=== PATIENT | female | born 1960 | race Caucasian/White ===

== ENCOUNTER 2018-06-12 07:33 | Inpatient (IN) | payer OTHER ==
[2018-06-12 07:42] VITALS: BMI 30.9
--- NOTE | 2018-06-12 07:49 | PDOC ---
History of Present Illness - General Stated Complaint: CVA/TIA Time Seen by Provider: 06/12/18 07:37 History Source: Patient, EMS, Family - History of Present Illness Timing/Duration: reports: other (~11 hrs ago) Associated Symptoms: reports: confusion Past History - Past Medical History Allergies/Adverse Reactions: Allergies Allergy/AdvReac Type Severity Reaction Status Date / Time piperacillin AdvReac Mild Rash Verified 04/01/12 18:35 Home Medications: Ambulatory Orders Aspirin [ASA] 81 mg PO DAILY 60 Days tab 04/05/12 Cholecalciferol (Vitamin D3) [Vitamin D3] 4,000 unit PO DAILY capsule 02/09/15 CVA: Yes Hypercholesterolemia: Yes - Surgical History Appendectomy: Yes - Suicide/Smoking/Psychosocial Hx Smoking Status: No Smoking History: Current some day smoker Years of Tobacco Use: 20 Have you smoked in the past 12 months: Yes Number of Cigarettes Smoked Daily: 10 'Breaking Loose' booklet given: 04/02/12 Hx Alcohol Use: No Drug/Substance Use Hx: No Substance Use Type: None Hx Substance Use Treatment: No Review of Systems - Review of Systems Constitutional: No: Chills, Fever HEENTM: No: Blurred Vision Respiratory: No: Cough, Shortness of Breath Cardiac (ROS): No: Chest Pain, Lightheadedness, Palpitations, Syncope ABD/GI: No: Nausea, Vomiting, Abdominal cramping : No: Dysuria Neurological: No: Headache, Numbness, Weakness, Dizziness *Physical Exam - Physical Exam General Appearance: Yes: Appropriately Dressed. No: Apparent Distress HEENT: positive: Normal Voice Neck: positive: Supple Respiratory/Chest: positive: Lungs Clear, Normal Breath Sounds. negative: Respiratory Distress Cardiovascular: positive: Regular Rate, S1, S2 Gastrointestinal/Abdominal: positive: Soft. negative: Tender Musculoskeletal: negative: CVA Tenderness Extremity: positive: Normal Inspection Integumentary: positive: Dry, Warm Neurologic: positive: Alert, Normal Mood/Affect, Motor Strength 5/5. negative: Facial Droop (alert, oriented x 0 (does not give answers, appears to have difficulty finding words), unable to perform [place] to LUE only, no drift, no ataxia) NIH Stroke Scale - Last Known Well Date/Time & Onset Date Last Known Well: 06/11/18 (@9pm) - Initial Evaluation Level of consciousness: Alert Ask patient the month and their age: Both incorrect (unable to answer) Ask patient to open & close eyes; make fist and let go: Obeys both correctly Best gaze (horizontal eye movement): Normal Visual field testing: No visual field loss Facial paresis (Show teeth/raise eyebrows/close eyes tight): Normal symmetrical movement Motor Function: Left Arm: Normal Motor Function: Right Arm: Normal (extends arm 90 (or 45) degrees for 10 seconds without drift Motor Function: Left Leg: Normal (extends leg 30 degrees for 5 seconds without drift) Motor Function: Right Leg: Normal (extends leg 30 degrees for 5 seconds without drift) Limb Ataxia: Present in one limb Sensory(Use pinprick test arms,legs,trunk,face/side to side): Normal Best language (Describe picture, name items, read sentences): Mild to moderate aphasia Dysarthria (read several words): Normal articulation Extinction and Inattention: No abnormality - Total Score NIH Stroke Scale Score: 4 Critical Care Time/MDM Note - Medical Decision Making Note: 06/12/18 07:41 58-year-old F, smoker, TIA 3 years ago, s/p carotid dopplers 04/2017, showing no significant "hemodynamic stenosis", BIB EMS for AMS. Family reports that at about 9pm last night, they noticed that patient appeared confused and with difficulty producing speech. Family describes an event this am where patient stood in the doorway just staring "into space", at which time they called EMS. Patient alert in ED and able to give some history, states she feels well with no headache, dizziness, focal weakness, nausea, vomiting, chest pain or shortness of breath See exam CVA NIHSS score of 4 -labs -CTH -admit 06/12/18 08:06 06/12/18 08:55 CT head read as negative. Labs and EKG unremarkable. Neuro exam unchanged. Case discussed with Dr. Valenzuela who will see patient in-house. Will discuss case with hospitalist and admit at this time 06/12/18 08:58 *DC/Admit/Observation/Transfer Diagnosis at time of Disposition: Aphasia Altered mental status Qualifiers: Altered mental status type: unspecified Qualified Code(s): R41.82 - Altered mental status, unspecified - Discharge Dispostion Condition at time of disposition: Fair Decision to Admit order: Yes - Referrals - Patient Instructions - Post Discharge Activity
[2018-06-12 08:18] LABS: EOS % 4.6 % (0-4.5); HEMATOCRIT 46.5 % (32.4-45.2); HEMOGLOBIN 15.2 GM/dL (10.7-15.3); LYMPH % 23.4 % (8-40); MCH 28.3 pg (25.7-33.7); MCHC 32.8 g/dl (32.0-36.0); MEAN CELL VOLUME 86.3 fl (80-96); MEAN PLT VOLUME 9.2 fl (7.5-11.1); MONO % 6.1 % (3.8-10.2); NEUT % 64.9 % (42.8-82.8); PLATELET COUNT 270 K/MM3 (134-434); RBC 5.39 M/mm3 (3.60-5.2); RDW 14.2 % (11.6-15.6); WHITE BLOOD COUNT 11.6 K/mm3 (4.0-10.0)
--- NOTE | 2018-06-12 08:28 | PDOC ---
*Physical Exam - Vital Signs Last Vital Signs Temp Pulse Resp BP Pulse Ox 97.8 F 65 18 141/60 92 L 06/12/18 07:34 06/12/18 07:34 06/12/18 07:34 06/12/18 07:34 06/12/18 07:34 - Physical Exam Comments: 06/12/18 08:24 Vital signs within normal limits Heart is regular with one out of 6 systolic ejection murmur NEURO: Mental status: The patient is alert and oriented x2 - difficulty specifying location. Cranial nerves: Cranial nerves II through XII are intact Motor: The upper extremities are 5 over 5 in all muscle groups. The lower extremities are 5 over 5 in all muscle groups. No pronator drift. Sensation: Sensation is intact to light touch throughout. Cerebellar: [id number] is normal in both upper extremities. Reflexes: 2+ and symmetric in the upper and lower extremities. Gait: Normal. Heel and toe walking are normal. Heart Score/ECG Review #1 ECG reviewed & interpreted by me at: 08:27 General ECG Interpretation: Sinus Rhythm, Normal Rate (61), Normal Intervals ( qtc 434), No acute ischemic changes ED Treatment Course - LABORATORY CBC & Chemistry Diagram: 06/12/18 07:50 06/12/18 07:50 - ADDITIONAL ORDERS Additional order review: 06/12/18 07:50 RBC 5.39 H MCV 86.3 MCHC 32.8 RDW 14.2 MPV 9.2 D Neutrophils % 64.9 Lymphocytes % 23.4 Monocytes % 6.1 Eosinophils % 4.6 H Basophils % 1.0 Medical Decision Making - Critical Care Time Total Critical Care Time (minutes): 30 Critical Care Statement: The care of this patient involved high complexity decision making to prevent further life threatening deterioration of the patient 's condition and/or to evaluate & treat vital organ system(s) failure or risk of failure. 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 Patient has been lost to medical follow-up for about one year and off of her cholesterol medications since then, is taking a baby aspirin daily continue smoking. Last night around 9:30 the patient reports feeling generally unwell, went to bed around 11:30 and awoke at 5:30 AM feeling confused, was found at 7:30 AM staring in space while walking her dog and aphasic. Speech has improved since then, patient denies any other complaints of headache/vision change/chest pain/focal weakness. Presentation is very similar to TIA from 3 years ago. 58-year-old female with high cholesterol and significant smoking history presents with altered mental status and aphasia, no noticeable motor deficits on examination. Last known well was 9:30 PM on 06/11. Stroke protocol initiated, not a candidate for thrombolysis or mechanical thrombectomy, will check CT and proceed with admission for further stroke workup. Labs, urinalysis EKG, chest x-ray, CT head Neurology consult Admission to stroke unit 06/12/18 10:21 ct unremarkable. labs wnl other than elevated cholesterol. seen by neuro Dr. Valenzuela in ED, recommends CTA brain/neck which was ordered. *DC/Admit/Observation/Transfer Diagnosis at time of Disposition: Aphasia, Altered mental status - Discharge Dispostion Condition at time of disposition: Fair - Referrals - Patient Instructions - Post Discharge Activity
[2018-06-12 08:29] LABS: ALBUMIN 3.5 g/dl (3.4-5.0); ALK PHOS 98 U/L (45-117); ANION GAP 11 MMOL/L (8-16); BILIRUBIN,TOTAL 0.4 mg/dL (0.2-1); BLOOD UREA NITROGEN 11 mg/dL (7-18); CALCIUM 8.7 mg/dL (8.5-10.1); CHLORIDE 106 mmol/L (98-107); CO2 22 mmol/L (21-32); CREATININE 0.8 mg/dL (0.55-1.3); GLUCOSE,RANDOM 120 mg/dL (74-106); POTASSIUM 4.3 mmol/L (3.5-5.1); SGOT/AST 19 U/L (15-37); SGPT/ALT 20 U/L (13-61); SODIUM 139 mmol/L (136-145); TOT PROT 7.4 g/dl (6.4-8.2)
[2018-06-12 08:53] LABS: INR 1.02 (0.83-1.09)
[2018-06-12 09:17] LABS: CHOLESTEROL 262 mg/dL (50-200); HDL CHOLESTEROL 40 mg/dL (40-60); TRIGLYCERIDES 306 mg/dL (0-150)
[2018-06-12] MEDS ORDERED: ASPIRIN 81 MG CHEWABLE TABLETS ONE (09:28)
[2018-06-12] MEDS ORDERED: ASPIRIN COATED 81 MG TABLET.EC PO ONE (09:52)
[2018-06-12] MEDS ORDERED: ASPIRIN COATED 81 MG TABLET.EC PO SCH (10:00)
--- NOTE | 2018-06-12 10:12 | CON.NEURO ---
Consult - History of Present Illness History of Present Illness: 58-year-old female with history of high cholesterol, TIA 3 years ago after presented with altered mental status and aphasia to 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 Patient has been lost to medical follow-up for about one year and off of her cholesterol medications since then, is taking a baby aspirin daily continue smoking. Last night around 9:30 the patient reports feeling generally unwell, went to bed around 11:30 and awoke at 5:30 AM feeling confused, was found at 7:30 AM staring in space while walking her dog and aphasic. Speech has improved since then, patient denies any other complaints of headache/vision change/chest pain/focal weakness. Presentation is very similar to TIA from 3 years ago. +heavy smoker and coffee drinker, no drugs, ETOH currently aphasic-expressive , awake , alert IMPRESSION: Normal CT scan of the head with no evidence of acute intracranial pathology. - Alcohol/Substance Use Hx Alcohol Use: No - Smoking History Smoking history: Current some day smoker Have you smoked in the past 12 months: Yes Aproximately how many cigarettes per day: 10 Home Medications - Allergies Allergies/Adverse Reactions: Allergies Allergy/AdvReac Type Severity Reaction Status Date / Time piperacillin AdvReac Mild Rash Verified 04/01/12 18:35 - Home Medications Home Medications: Ambulatory Orders Aspirin [ASA] 81 mg PO DAILY 60 Days tab 04/05/12 Physical Exam-Neuro Vital Signs: Vital Signs Temperature 97.8 F 06/12/18 07:34 Pulse Rate 61 06/12/18 08:50 Respiratory Rate 18 06/12/18 08:50 Blood Pressure 119/57 L 06/12/18 08:50 O2 Sat by Pulse Oximetry (%) 96 06/12/18 08:50 Constitutional: Yes: Well Nourished, No Distress Labs: CBC, BMP 06/12/18 07:50 06/12/18 07:50 INR, PTT INR 1.02 (0.83-1.09) 06/12/18 07:50 - Neuro Exam Level Of Consciousness: Yes: Alert (exptressive aphasia, unable to repeat , name , following requests, mild R facial , no clear drift, reflexes syymmetric ) NIH Stroke Scale - Last Known Well Date/Time & Onset Date Last Known Well: 06/11/18 Time Last Known Well: 12:00 - Initial Evaluation Level of consciousness: Alert Ask patient the month and their age: Both incorrect Ask patient to open & close eyes; make fist and let go: Obeys both correctly Best gaze (horizontal eye movement): Normal Visual field testing: No visual field loss Facial paresis (Show teeth/raise eyebrows/close eyes tight): Minor paralysis ( flattened nasolabial fold, asymmetry on smiling) Motor Function: Left Arm: Normal Motor Function: Right Arm: Normal (extends arm 90 (or 45) degrees for 10 seconds without drift Motor Function: Left Leg: Normal (extends leg 30 degrees for 5 seconds without drift) Motor Function: Right Leg: Normal (extends leg 30 degrees for 5 seconds without drift) Limb Ataxia: No ataxia Sensory(Use pinprick test arms,legs,trunk,face/side to side): Normal Best language (Describe picture, name items, read sentences): Severe aphasia Dysarthria (read several words): Mild to moderate slurring of words Extinction and Inattention: No abnormality (6) - Total Score NIH Stroke Scale Score: 6 Imaging - Results Cat Scan: Report Reviewed, Image Reviewed Assessment/Plan 58-year-old female with history of high cholesterol, TIA 3 years ago after presented with altered mental status and aphasia to 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 Patient has been lost to medical follow-up for about one year and off of her cholesterol medications since then, is taking a baby aspirin daily continue smoking. Last night around 9:30 the patient reports feeling generally unwell, went to bed around 11:30 and awoke at 5:30 AM feeling confused, was found at 7:30 AM staring in space while walking her dog and aphasic. Speech has improved since then, patient denies any other complaints of headache/vision change/chest pain/focal weakness. Presentation is very similar to TIA from 3 years ago. +heavy smoker and coffee drinker, no drugs, ETOH currently aphasic-expressive , awake , alert IMPRESSION: Normal CT scan of the head with no evidence of acute intracranial pathology. Impression: new onset expressive aphasia, unknown exact time of onset ( wake up stroke 5:30? , apparently was well at midnight), awoke with aphasia, n o sig hemiparesis ; localizes to branch left MCA territory NO TPA given not in window expeditious CTA H and Neck in ER --r/o large vessel occlusion, if + will consider transfer ASA , statin , stroke PEDERSON , ECHO, holter , will also likely need LOOP Speech TX DR CLARK please call me with results [phone] or cell
--- NOTE | 2018-06-12 10:20 | HP ---
CHIEF COMPLAINT: trouble speaking PCP: HISTORY OF PRESENT ILLNESS: 58 yo F with PMhx of HLD and TIA (3 yrs prior) presents with AMS and aphasia. She was normal state of health last night when she went to bed, but this morning when she awoke she was confused and her son-in-law said "good morning" and she just looked at him with blank stare. She was unable to get the words out. She was then transported to ED by EMS. Since arrival her speech has improved but not to baseline. She is a current heavy smoker. Denies LOBATO,CP, vision changes, weakness, palpitations, fever, chills, nausea or vomiting. In terms of her previous stroke she was seen at [facility] and at that time carotid doppler showed 70% occlusion and she was initiated on statin therapy but has been non-compliant. She states that this presentation is very similar to previous TIA. ER course was notable for: (1)CT head shows no acute pathology. (2)ASA 325mg given (3)Lipid panel shows elevated LDL (4)EKG: Sinus Rhythm, Normal Rate (61), Normal Intervals (qtc 434), No acute ischemic changes Recent Travel:denies PAST MEDICAL HISTORY: HLD, TIA (3 yrs prior) PAST SURGICAL HISTORY: appendectomy Social History: Smoking: current 1 pack/day smoker Alcohol:social Drugs: denies Family History: Mother (CHF @ 54) , Father (lung Ca @67) Allergies piperacillin Adverse Reaction (Mild, Verified 04/01/12 18:35) Rash NEW ALLERGY HOME MEDICATIONS: Home Medications Medication Instructions Recorded Aspirin [ASA] 81 mg PO DAILY 60 Days tab 04/05/12 REVIEW OF SYSTEMS CONSTITUTIONAL: Absent: fever, chills, diaphoresis, generalized weakness, malaise, loss of appetite, weight change HEENT: Absent: rhinorrhea, nasal congestion, throat pain, throat swelling, difficulty swallowing, mouth swelling, ear pain, eye pain, visual changes CARDIOVASCULAR: Absent: chest pain, syncope, palpitations, irregular heart rate, lightheadedness , peripheral edema RESPIRATORY: Absent: cough, shortness of breath, dyspnea with exertion, orthopnea, wheezing, stridor, hemoptysis GASTROINTESTINAL: Absent: abdominal pain, abdominal distension, nausea, vomiting, diarrhea, constipation, melena, hematochezia GENITOURINARY: Absent: dysuria, frequency, urgency, hesitancy, hematuria, flank pain, genital pain MUSCULOSKELETAL: Absent: myalgia, arthralgia, joint swelling, back pain, neck pain SKIN: Absent: rash, itching, pallor HEMATOLOGIC/IMMUNOLOGIC: Absent: easy bleeding, easy bruising, lymphadenopathy, frequent infections ENDOCRINE: Absent: unexplained weight gain, unexplained weight loss, heat intolerance, cold intolerance NEUROLOGIC: Absent: headache, focal weakness or paresthesias, dizziness, unsteady gait, seizure, mental status changes, bladder or bowel incontinence PSYCHIATRIC: Absent: anxiety, depression, suicidal or homicidal ideation, hallucinations. PHYSICAL EXAMINATION Vital Signs - 24 hr 06/12/18 06/12/18 07:34 08:50 Temperature 97.8 F Pulse Rate 65 Pulse Rate [ 61 Left] Respiratory 18 18 Rate Blood Pressure 141/60 Blood Pressure 119/57 L [Left Arm] O2 Sat by Pulse 92 L 96 Oximetry (%) GENERAL: AAOx3, NAD HEAD: NCAT EYES: PERRLA,EOMI, sclera anicteric, conjunctiva clear. No lid lag. EARS, NOSE, THROAT: Dry mucous membranes. NECK: Normal range of motion, supple without lymphadenopathy, JVD, or masses. LUNGS: diminished breath sounds bilat. No wheezes, and no crackles. some rhonchi on left side. No accessory muscle use. HEART: RRR, normal S1 and S2 w/o M/G/R ABDOMEN: Soft,NTND, NABS, no guarding, no rebound, no masses. No hepatomegaly or splenomegaly. MUSCULOSKELETAL: Normal range of motion at all joints. No bony deformities or tenderness. No CVA tenderness. UPPER EXTREMITIES: 2+ pulses, warm, well-perfused. No cyanosis. No clubbing. No peripheral edema. LOWER EXTREMITIES: 2+ pulses, warm, well-perfused. No calf tenderness. No peripheral edema. NEUROLOGICAL: Cranial nerves II-XII intact. expressive aphasia, mild dysarthria , 5/5 strength Upper and lower ext, No limb ataxia, sensation intact throughout. DTR 2+, minor facial asymmetry on smiling, finger to nose normal R/ L. PSYCHIATRIC: Cooperative. Good eye contact. Appropriate mood and affect. SKIN: Warm, dry, normal turgor, no rashes or lesions noted, normal capillary refill. Laboratory Results - last 24 hr 06/12/18 06/12/18 06/12/18 07:50 07:50 07:50 WBC 11.6 H RBC 5.39 H Hgb 15.2 Hct 46.5 H D MCV 86.3 MCH 28.3 MCHC 32.8 RDW 14.2 Plt Count 270 D MPV 9.2 D Absolute Neuts (auto) 7.5 Neutrophils % 64.9 Lymphocytes % 23.4 Monocytes % 6.1 Eosinophils % 4.6 H Basophils % 1.0 Nucleated RBC % 0 PT with INR 12.00 INR 1.02 Sodium Potassium Chloride Carbon Dioxide Anion Gap BUN Creatinine Creat Clearance w eGFR Random Glucose Calcium Total Bilirubin AST ALT Alkaline Phosphatase Creatine Kinase Troponin I Total Protein Albumin Triglycerides Cholesterol Total LDL Cholesterol HDL Cholesterol Blood Type A POSITIVE Antibody Screen Negative 06/12/18 07:50 WBC RBC Hgb Hct MCV MCH MCHC RDW Plt Count MPV Absolute Neuts (auto) Neutrophils % Lymphocytes % Monocytes % Eosinophils % Basophils % Nucleated RBC % PT with INR INR Sodium 139 Potassium 4.3 Chloride 106 Carbon Dioxide 22 Anion Gap 11 BUN 11 Creatinine 0.8 Creat Clearance w eGFR > 60 Random Glucose 120 H Calcium 8.7 Total Bilirubin 0.4 AST 19 ALT 20 Alkaline Phosphatase 98 Creatine Kinase 116 Troponin I < 0.02 Total Protein 7.4 Albumin 3.5 Triglycerides 306 H Cholesterol 262 H Total LDL Cholesterol 158 H HDL Cholesterol 40 Blood Type Antibody Screen ASSESSMENT/PLAN: 58 yo F presents with AMS and trouble speaking admitted to stroke unit for TIA v. CVA. Problem List - Problem (1) TIA (transient ischemic attack) Assessment/Plan: ABCD score 4 * Admit to stroke unit- continuous monitoring. * non contrast CT head - shows no intracranial pathology. * Neurology consult- CTA head and neck pending. * ASA 325 given in ED * consider starting Plavix. * Lipid profile shows hyperlipidemia- initiate Lipitor 40mg HS * elevate head of bed 15 degrees * Neuro checks q1H * NPO pending speech and swallow eval. * Echo and Carotid doppler pending. * Fall risk precautions * TSH, HgbA1C and B12 pending. * Orthostatic VS Q12H * Early ambulation with assist. (2) Tobacco abuse Assessment/Plan: Nicoderm patch 14mg (3) Tobacco abuse counseling Assessment/Plan: counseled on importance of sesation. * Explained the risk of continued smoking including but not limited to stroke and heart attack. * She stats that she will consider quitting and is agreeable to nicotine patch. Visit type - Emergency Visit Emergency Visit: Yes ED Registration Date: 06/12/18 Care time: The patient presented to the Emergency Department on the above date and was hospitalized for further evaluation of their emergent condition. - New Patient This patient is new to me today: Yes Date on this admission: 06/12/18 - Critical Care Critical Care patient: No
[2018-06-12 10:48] LABS: URINE APPEARANCE CLEAR; URINE BILIRUBIN NEGATIVE (<2.0 mg/dL); URINE COLOR LTYELLOW; URINE GLUCOSE (UA) NEGATIVE (NEGATIVE); URINE KETONE NEGATIVE (NEGATIVE); URINE LEUK ESTERASE NEGATIVE (NEGATIVE); URINE NITRITE NEGATIVE (NEGATIVE); URINE PROTEIN NEGATIVE (NEGATIVE); URINE UROBILINOGEN NEGATIVE mg/dL (0.2-1.0)
[2018-06-12 10:57] LABS: EPI CELLS RARE /HPF (FEW); URINE BACTERIA RARE /hpf (NONE SEEN)
--- NOTE | 2018-06-12 12:38 | CONSULT ---
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 Patient has been lost to medical follow-up for about one year and off of her cholesterol medications since then, is taking a baby aspirin daily continue smoking. Last night around 9:30 the patient reports feeling generally unwell, went to bed around 11:30 and awoke at 5:30 AM feeling confused, was found at 7:30 AM staring in space while walking her dog and aphasic. Speech has improved since then, patient denies any other complaints of headache/vision change/chest pain/focal weakness. Presentation is very similar to TIA from 3 years ago. +heavy smoker and coffee drinker, no drugs, ETOH CT head (-). History Source: Medical Record Limitations to Obtaining History: Clinical Condition (Expressive Aphasia) - Past Medical History ...: No - Smoking History Smoking history: Current some day smoker Have you smoked in the past 12 months: Yes Aproximately how many cigarettes per day: 10 - Alcohol/Substance Use Hx Alcohol Use: No History - Admission Reason For Visit: ALTERED MENTAL STATUS - Diagnostics X-ray: Report Reviewed CT Scan: Report Reviewed - General Mental Status: Alert and Oriented, Awake and Alert, Able to Follow Commands Attention: Intact Ability to Follow Directions: Excellent Head/Neck Control: WFL - Hearing Hearing: Functional Speech Evaluation - Communication Primary Language: [id number] Communication: Yes: Aphasia Oral Expression Ability: Yes: Severe Impairment - Speech Production Able to Make Needs Known: Yes: Moderately Impaired, Severely Impaired Intelligibility: Yes: WNL - Speech Characteristics Voice Loudness: Normal Voice Pitch: Yes: Normal Voice Phonatory-based Quality: Yes: Normal Speech Pattern: Impaired Speech Clarity: < 100% Nasal Resonance: Normal Articulation: Yes: Precise - Language/Auditory Comprehension Follows: Yes: 2 Stage Simple Commands Observation: Able to respond to yes/no queries: Yes, Yes/No Confusion: No, Comprehends Conversational Speech: Yes - Language/Verbal Expression Aphasia: Yes: Anomia, Impaired Repetition, Paraphrasic Errors, Neologisms, Apraxia Able to Respond to Simple Queries: Yes: Moderately Impaired, Severely Impaired Able to Communicate Wants and Needs: Yes: Moderately Impaired, Severely Impaired Functional Communication Status: Yes: Moderately Impaired, Severely Impaired Aware of Errors: Yes Attempts to Correct Errors: Yes Use of Gestures: No - Memory/Perception shelter Memory: Yes: WNL Short Term Memory: Yes: WNL - Swallow Evaluation/Bedside Assessment Current Nutritional Intake: NPO Oral Secretions: Yes: WFL Dentition: Yes: Adequate Facial Symmetry at Rest: Symmetrical Facial Symmetry on Retraction: Symmetrical Sensation: Normal Against Resistance Opening: Normal Against Resistance Closing: Normal Pucker Lips: Normal Smile: Normal Lingual Movement: Normal, Symmetric Lingual Speed of Movement: Normal Lingual Movement Strgth Against Opposition: Normal Lingual Movement Characteristics: Normal Velopharyngeal Movement: Normal Laryngeal Elevation: WFL Laryngeal Movement: Able to Palpate Rate of Intake: WFL Bolus Size: WFL Labial Seal: WFL Chewing: WFL Oral Prep Time: WFL A-P Transit: WFL Pocketing: None Timing of Swallow: WFL Coughing/Throat Clear: No Change in Voice: No Recommendations - Speech Evaluation, Impression/Plan Impression: Pt presents with Expressive aphasia characterized by Neologisms without paraphasic errors during confrontation naming, repetition, propositional speech tasks. She is better able to write than speak, which will greatly improve pt's ability to functionally express herself! 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 She is very aware of her errors and attempts to self-correct, rarely successful. Swallowing intact. Cognition seems intact. No dysarthria. Excellent prognosis for recovery suspected. - Dysphagia Impressions/Plan Swallowing Skills: WF Dysphagia Impressions: No Impairment *Silent aspiration: cannot be R/O at bedside Recommendations: Other (I will follow her for speech therapy.) - Recommendations Diet Consistency: Regular Medication Administration: Whole with water Liquids: Thin Liquids
--- NOTE | 2018-06-12 12:53 | PN ---
Teaching Attending Note Name of Resident: Burt Valero ATTENDING PHYSICIAN STATEMENT I saw and evaluated the patient. I reviewed the resident's note and discussed the case with the resident. I agree with the resident's findings and plan as documented. SUBJECTIVE: OBJECTIVE: Vital Signs Period Temp Pulse Resp BP Sys/Velasco Pulse Ox Last 24 Hr 97.7 F-97.8 F 61-67 18-18 119-141/57-78 92-97 Laboratory Tests 06/12/18 06/12/18 06/12/18 07:50 07:50 07:50 WBC 11.6 H RBC 5.39 H Hgb 15.2 Hct 46.5 H D MCV 86.3 MCH 28.3 MCHC 32.8 RDW 14.2 Plt Count 270 D MPV 9.2 D Absolute Neuts (auto) 7.5 Neutrophils % 64.9 Lymphocytes % 23.4 Monocytes % 6.1 Eosinophils % 4.6 H Basophils % 1.0 Nucleated RBC % 0 PT with INR 12.00 INR 1.02 Sodium Potassium Chloride Carbon Dioxide Anion Gap BUN Creatinine Creat Clearance w eGFR Random Glucose Hemoglobin A1c % Calcium Total Bilirubin AST ALT Alkaline Phosphatase Creatine Kinase Troponin I Total Protein Albumin Triglycerides Cholesterol Total LDL Cholesterol HDL Cholesterol Vitamin B12 TSH Urine Color Urine Appearance Urine pH Ur Specific [place] Urine Protein Urine Glucose (UA) Urine Ketones Urine Blood Urine Nitrite Urine Bilirubin Urine Urobilinogen Ur Leukocyte Esterase Urine WBC (Auto) Urine RBC (Auto) Ur Epithelial Cells Urine Bacteria Blood Type A POSITIVE Antibody Screen Negative 06/12/18 06/12/18 06/12/18 07:50 07:50 10:40 WBC RBC Hgb Hct MCV MCH MCHC RDW Plt Count MPV Absolute Neuts (auto) Neutrophils % Lymphocytes % Monocytes % Eosinophils % Basophils % Nucleated RBC % PT with INR INR Sodium 139 Potassium 4.3 Chloride 106 Carbon Dioxide 22 Anion Gap 11 BUN 11 Creatinine 0.8 Creat Clearance w eGFR > 60 Random Glucose 120 H Hemoglobin A1c % 5.8 Calcium 8.7 Total Bilirubin 0.4 AST 19 ALT 20 Alkaline Phosphatase 98 Creatine Kinase 116 Troponin I < 0.02 Total Protein 7.4 Albumin 3.5 Triglycerides 306 H Cholesterol 262 H Total LDL Cholesterol 158 H HDL Cholesterol 40 Vitamin B12 509 TSH 1.80 Urine Color Ltyellow Urine Appearance Clear Urine pH 6.0 Ur Specific [place] 1.004 L Urine Protein Negative Urine Glucose (UA) Negative Urine Ketones Negative Urine Blood 1+ H Urine Nitrite Negative Urine Bilirubin Negative Urine Urobilinogen Negative Ur Leukocyte Esterase Negative Urine WBC (Auto) 1 Urine RBC (Auto) <1 Ur Epithelial Cells Rare Urine Bacteria Rare Blood Type Antibody Screen Home Medications Medication Instructions Recorded Aspirin [ASA] 81 mg PO DAILY 60 Days tab 04/05/12 ASSESSMENT AND PLAN:
--- NOTE | 2018-06-12 14:21 | ECHO ---
Name: ROBBY SHORE Exam:Adult Echocardiogram Study Date: 06/12/2018 01:47 PM Age: 58 yrs Reason For Study: TIA R/O THROMBUS Height: 64 in Weight: 180 lb BSA: 1.9 m2 MMode/2D Measurements & Calculations IVSd: 0.86 cm Ao root diam: 2.5 cm LVIDd: 4.4 cm LA dimension: 3.9 cm LVIDs: 3.2 cm LVPWd: 0.79 cm EDV(Teich): 89.9 ml ESV(Teich): 40.9 ml Doppler Measurements & Calculations MV E max morro: 64.2 cm/sec Ao V2 max: 196.5 cm/sec MV A max morro: 70.3 cm/sec Ao max P.5 mmHg MV E/A: 0.91 LV V1 max P.4 mmHg Med Peak E' Morro: 8.2 cm/sec LV V1 max: 126.9 cm/sec Med E/e': 7.8 Lat Peak E' Morro: 11.7 cm/sec Lat E/e': 5.5 Procedure A complete two-dimensional transthoracic echocardiogram was performed (2D, M-mode, Doppler and color flow Doppler). The study was technically excellent with all images being of optimal quality. Left Ventricle The left ventricular size, thickness and function are normal. The transmitral spectral Doppler flow p attern is suggestive of impaired LV relaxation. The left ventricular wall motion is normal. Right Ventricle The right ventricle is normal in size and function. There is normal right ventricular wall thickness. Atria Normal left and right atrial size and function. Mitral Valve There is mild mitral annular calcification. There is trace mitral regurgitation. Tricuspid Valve The tricuspid valve is normal in structure and function. There is trace tricuspid regurgitation. Aortic Valve The aortic valve is normal in structure and function. No aortic regurgitation is present. Pulmonic Valve The pulmonic valve is normal in structure and function. Trace pulmonic valvular regurgitation. Great Vessels The aortic root is normal size. Pericardium/Pleura There is no pericardial effusion. Interpretation Summary The left ventricular size, thickness and function are normal The transmitral spectral Doppler flow pattern is suggestive of impaired LV relaxation. There is normal right ventricular wall thickness. There is mild mitral annular calcification. There is trace mitral regurgitation. Sourav Quezada 06/12/2018 02:20 PM
[2018-06-12] MEDS ORDERED: FLU VACCINE QUAD 60 MCG/0.5 ML (MDV 18-19) IM ONE (15:00)
--- NOTE | 2018-06-12 15:56 | EKG ---
Test Reason : Blood Pressure : / mmHG Vent. Rate : 061 BPM Atrial Rate : 061 BPM P-R Int : 124 ms QRS Dur : 090 ms QT Int : 432 ms P-R-T Axes : 052 050 034 degrees QTc Int : 434 ms POOR DATA QUALITY, INTERPRETATION MAY BE ADVERSELY AFFECTED NORMAL SINUS RHYTHM POSSIBLE LEFT ATRIAL ENLARGEMENT BORDERLINE ECG WHEN COMPARED WITH ECG OF 01-APR-2012 19:34, NO SIGNIFICANT CHANGE WAS FOUND Confirmed by Sourav Quezada ([id number]) on 06/12/2018 3:56:21 PM Referred By: Confirmed By:Sourav Quezada
[2018-06-12] MEDS: ATORVASTATIN CA 40 MG TABLET (FP) PO SCH (21:39)
[2018-06-13 06:25] LABS: BASO % 1.1 % (0-2.0); EOS % 3.9 % (0-4.5); HEMATOCRIT 44.3 % (32.4-45.2); HEMOGLOBIN 15.2 GM/dL (10.7-15.3); LYMPH % 20.5 % (8-40); MCH 29.5 pg (25.7-33.7); MCHC 34.3 g/dl (32.0-36.0); MEAN PLT VOLUME 8.9 fl (7.5-11.1); MONO % 7.2 % (3.8-10.2); NEUT % 67.3 % (42.8-82.8); PLATELET COUNT 262 K/MM3 (134-434); RBC 5.15 M/mm3 (3.60-5.2); RDW 14.2 % (11.6-15.6); WHITE BLOOD COUNT 11.9 K/mm3 (4.0-10.0)
[2018-06-13 06:59] LABS: ALBUMIN 3.3 g/dl (3.4-5.0); ALK PHOS 89 U/L (45-117); ANION GAP 7 MMOL/L (8-16); BILIRUBIN,TOTAL 0.3 mg/dL (0.2-1); BLOOD UREA NITROGEN 11 mg/dL (7-18); CALCIUM 8.3 mg/dL (8.5-10.1); CHLORIDE 108 mmol/L (98-107); CO2 26 mmol/L (21-32); CREATININE 0.8 mg/dL (0.55-1.3); GLUCOSE,RANDOM 95 mg/dL (74-106); MAGNESIUM 2.3 mg/dL (1.8-2.4); PHOSPHOROUS 3.8 mg/dL (2.5-4.9); POTASSIUM 4.1 mmol/L (3.5-5.1); SGOT/AST 16 U/L (15-37); SGPT/ALT 17 U/L (13-61); SODIUM 141 mmol/L (136-145); TOT PROT 6.6 g/dl (6.4-8.2)
[2018-06-13] MEDS: NICOTINE 21 MG/24 HOURS TOPICAL PATCH TD SCH (09:40)
[2018-06-13] MEDS: ASPIRIN 81 MG CHEWABLE TABLETS PO SCH (09:40)
[2018-06-13] MEDS: ENOXAPARIN NA (PORCINE) 40 MG/0.4 ML DISP.SYRIN SQ SCH (09:40)
--- NOTE | 2018-06-13 10:02 | PN ---
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 Patient has been lost to medical follow-up for about one year and off of her cholesterol medications since then, is taking a baby aspirin daily continue smoking. Last night around 9:30 the patient reports feeling generally unwell, went to bed around 11:30 and awoke at 5:30 AM feeling confused, was found at 7:30 AM staring in space while walking her dog and aphasic. Speech has improved since then, patient denies any other complaints of headache/vision change/chest pain/focal weakness. Presentation is very similar to TIA from 3 years ago. +heavy smoker and coffee drinker, no drugs, ETOH currently aphasic-expressive , awake , alert FU : muixed aphasia continues, no new co Studies: IMPRESSION: Normal CT scan of the head with no evidence of acute intracranial pathology. CTA : Impression: The intracranial exam demonstrates no discrete large vessel stenosis or occlusion. Evaluation of the left cervical internal carotid artery demonstrates an approximately 50% stenosis at the postbulbar level. There is mild wall irregularity posteriorly at that level which may represent noncalcified atherosclerotic plaque and/or adherent clot. The extracranial right carotid artery demonstrates no evidence of stenosis. The vertebral arteries are patent without definite evidence of stenosis. The partially imaged anterior segment of left upper lobe appear to demonstrate demonstrate mildly increased interstitial groundglass opacity may be on the basis of chronic or acute disease. If clinically indicated correlate with chest CT. Possible mild centrilobular emphysema versus mild postinflammatory/postinfectious change within the pulmonary apices. - Current Medication List Current Medications: Active Medications Aspirin (Asa -) 81 mg PO DAILY [facility] Last Admin: 06/13/18 09:40 Dose: 81 mg Atorvastatin Calcium (Lipitor -) 40 mg PO HS [facility] Last Admin: 06/12/18 21:39 Dose: 40 mg Enoxaparin Sodium (Lovenox -) 40 mg SQ DAILY [facility] Last Admin: 06/13/18 09:40 Dose: 40 mg Nicotine (Nicoderm Patch -) 21 mg TD DAILY [facility] Last Admin: 11/07/18 09:40 Dose: 21 mg - Objective Vital Signs: Vital Signs Temperature 97.9 F 06/13/18 05:00 Pulse Rate 57 L 06/13/18 05:00 Respiratory Rate 18 06/13/18 05:00 Blood Pressure 119/72 06/13/18 05:00 O2 Sat by Pulse Oximetry (%) 96 06/12/18 21:00 Neurological: Yes: Aphasia (mixed aphasia , no focal weakness) Labs: CBC, BMP 06/13/18 05:30 06/13/18 05:30 INR, PTT INR 1.02 (0.83-1.09) 06/12/18 07:50 Assessment/Plan 58-year-old female with history of high cholesterol, TIA 3 years ago after presented with altered mental status and aphasia to [facility], workup at that time revealed 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 Patient has been lost to medical follow-up for about one year and off of her cholesterol medications since then, is taking a baby aspirin daily continue smoking. Last night around 9:30 the patient reports feeling generally unwell, went to bed around 11:30 and awoke at 5:30 AM feeling confused, was found at 7:30 AM staring in space while walking her dog and aphasic. Speech has improved since then, patient denies any other complaints of headache/vision change/chest pain/focal weakness. Presentation is very similar to TIA from 3 years ago. +heavy smoker and coffee drinker, no drugs, ETOH currently aphasic-expressive , awake , alert IMPRESSION: Normal CT scan of the head with no evidence of acute intracranial pathology. Impression: new onset expressive aphasia, unknown exact time of onset ( wake up stroke 5:30? , apparently was well at midnight), awoke with aphasia, no sig hemiparesis ; localizes to branch left MCA territory -?inferior frontal NO TPA given not in window CTA (no evidence of LVO) FU MRI BRAIN ASA , statin , stroke PEDERSON , ECHO, holter , will also likely need LOOP Speech TX DR CLARK
--- NOTE | 2018-06-13 11:37 | PN ---
Progress Note, SERVICE AGENT - Note Progress Note: Pt producing more social speech and function words, with neologisms or anomia with content words. Difficulty with automatic series with 30% produced. Pt able to complete associative pairs 50% of time on simple level. She can write single words, hesitant with difficulty with intermittent accuracy but no phrases /sentences produced with difficulty with grammar. Able to read orally occasionally, with general difficulty reading aloud functional phrases and words she writes intermittently. Cognition seems intact. Swallowing intact Pending MRI. Excellent rehab candidate. I will follow.
--- NOTE | 2018-06-13 17:53 | PN ---
Teaching Attending Note Name of Resident: Paxton Ugalde ATTENDING PHYSICIAN STATEMENT I saw and evaluated the patient. I reviewed the resident's note and discussed the case with the resident. I agree with the resident's findings and plan as documented. SUBJECTIVE: OBJECTIVE: Vital Signs Period Temp Pulse Resp BP Sys/Velasco Pulse Ox Last 24 Hr 97.9 F-98.4 F 57-89 18-18 112-135/50-72 95-96 Laboratory Results - last 24 hr 06/13/18 06/13/18 05:30 05:30 WBC 11.9 H RBC 5.15 Hgb 15.2 Hct 44.3 MCV 86.0 MCH 29.5 MCHC 34.3 RDW 14.2 Plt Count 262 MPV 8.9 Absolute Neuts (auto) 8.0 Neutrophils % 67.3 Lymphocytes % 20.5 Monocytes % 7.2 Eosinophils % 3.9 Basophils % 1.1 Nucleated RBC % 0 Sodium 141 Potassium 4.1 Chloride 108 H Carbon Dioxide 26 Anion Gap 7 L BUN 11 Creatinine 0.8 Creat Clearance w eGFR > 60 Random Glucose 95 Calcium 8.3 L Phosphorus 3.8 Magnesium 2.3 Total Bilirubin 0.3 AST 16 ALT 17 Alkaline Phosphatase 89 Total Protein 6.6 Albumin 3.3 L Current Medications Generic Name Dose Route Start Last Admin Trade Name Freq PRN Reason Stop Dose Admin Aspirin 81 mg 06/13/18 10:00 06/13/18 09:40 Asa - PO 81 mg DAILY ARA Administration Atorvastatin Calcium 40 mg 06/12/18 22:00 06/12/18 21:39 Lipitor - PO 40 mg HS ARA Administration Enoxaparin Sodium 40 mg 06/13/18 10:00 06/13/18 09:40 Lovenox - SQ 40 mg DAILY ARA Administration Nicotine 21 mg 06/13/18 10:00 06/13/18 09:40 Nicoderm Patch - TD 21 mg DAILY ARA Administration ASSESSMENT AND PLAN:
--- NOTE | 2018-06-13 18:26 | PN ---
Physical Exam: SUBJECTIVE: Patient seen and examined pt at bedside this evening. Resting in bed comfortably, no complaints at this time. Denies any speech or language difficulties currently. OBJECTIVE: Vital Signs Period Temp Pulse Resp BP Sys/Velasco Pulse Ox Last 24 Hr 97.9 F-98.4 F 57-89 18-18 112-135/50-72 95-96 GENERAL: NAD Alert and Oriented HEAD: NC/AT EYES: PERRLA EOMI ENT: MMM NECK: Supple . LUNGS: CTA B/L No wheezing rales or rhonchi HEART:RRR No MRG S1S2 ABDOMEN:Soft NDNT No HSM EXTREMITIES: No CCE NEUROLOGICAL: CN 2-12 intact. No facial droop, no slurring of speech, gait WNL. PSYCH: Normal mood, normal affect. SKIN: Warm, dry, normal turgor, no rashes or lesions noted Laboratory Results - last 24 hr 06/13/18 06/13/18 05:30 05:30 WBC 11.9 H RBC 5.15 Hgb 15.2 Hct 44.3 MCV 86.0 MCH 29.5 MCHC 34.3 RDW 14.2 Plt Count 262 MPV 8.9 Absolute Neuts (auto) 8.0 Neutrophils % 67.3 Lymphocytes % 20.5 Monocytes % 7.2 Eosinophils % 3.9 Basophils % 1.1 Nucleated RBC % 0 Sodium 141 Potassium 4.1 Chloride 108 H Carbon Dioxide 26 Anion Gap 7 L BUN 11 Creatinine 0.8 Creat Clearance w eGFR > 60 Random Glucose 95 Calcium 8.3 L Phosphorus 3.8 Magnesium 2.3 Total Bilirubin 0.3 AST 16 ALT 17 Alkaline Phosphatase 89 Total Protein 6.6 Albumin 3.3 L Active Medications Generic Name Dose Route Start Last Admin Trade Name Jamalq PRN Reason Stop Dose Admin Aspirin 81 mg 06/13/18 10:00 06/13/18 09:40 Asa - PO 81 mg DAILY ARA Administration Atorvastatin Calcium 40 mg 06/12/18 22:00 06/12/18 21:39 Lipitor - PO 40 mg HS ARA Administration Enoxaparin Sodium 40 mg 06/13/18 10:00 06/13/18 09:40 Lovenox - SQ 40 mg DAILY ARA Administration Nicotine 21 mg 06/13/18 10:00 06/13/18 09:40 Nicoderm Patch - TD 21 mg DAILY ARA Administration CT Head: IMPRESSION: Normal CT scan of the head with no evidence of acute intracranial patholology CTA Neck: EXAM#: TYPE/EXAM: RESULT: [id number] CT/NECK CTA CT/BRAIN CTA Brain CT angiography Neck CT angiography Clinical information: aphasia Multiplanar imaging of the head and neck was performed following intravenous bolus administration of nonionic contrast. Individual partition images as well as projection and reformatted images are reviewed. The carotid and vertebrobasilar circulations demonstrate no CT evidence of large vessel stenosis or occlusion. No discrete aneurysm is seen. There is no extrinsic abnormality. A 1.3 cm low-attenuation focus is seen within the left insular cortex posteriorly consistent with acute nonhemorrhagic infarction. An approximately 50% stenosis is seen at the post bulbar segment of the left internal carotid artery. There is focal mild irregularity along the posterior wall which may be on the basis of noncalcified plaque and/or adherent clot. The extracranial right carotid artery demonstrates no evidence of stenosis. The vertebral arteries are patent. No discrete vertebral artery stenosis is seen. The vertebral artery origins are partially obscured due to beam hardening artifact. Mild to moderate bilateral maxillary sinus mucosal thickening is seen consistent with sinusitis which is probably chronic. Correlate clinically. Several small subcentimeter cystic foci are seen within the pulmonary apices mild centrilobular emphysema versus the sequela of prior inflammation/ infection. Impression: The intracranial exam demonstrates no discrete large vessel stenosis or occlusion. Evaluation of the left cervical internal carotid artery demonstrates an approximately 50% stenosis at the postbulbar level. There is mild wall irregularity posteriorly at that level which may represent noncalcified atherosclerotic plaque and/or adherent clot. The extracranial right carotid artery demonstrates no evidence of stenosis. The vertebral arteries are patent without definite evidence of stenosis. The partially imaged anterior segment of left upper lobe appear to demonstrate demonstrate mildly increased interstitial groundglass opacity may be on the basis of chronic or acute disease. If clinically indicated correlate with chest CT. Possible mild centrilobular emphysema versus mild postinflammatory/postinfectious change within the pulmonary apices. MRI shows: multifocal restricted diffusion, suggestive of left acute infarct at the Left MCA. ASSESSMENT/PLAN: 58 yo F presents with AMS and trouble speaking admitted to stroke unit for TIA v. CVA. # Altered mental status: new onset expressive aphasia, unknown exact time of onset -Admit to stroke unit- continuous monitoring. -non contrast CT head - shows no intracranial pathology. -Neurology Dr Valenzuela on board. CTA Neck and Carotid: -ASA 325 given in ED, now on 81 mg po daily -Lipid profile shows hyperlipidemia- Lipitor 40mg HS -elevate head of bed 15 degrees -Neuro checks q1H - speech and swallow eval. -Echo and Carotid doppler pending. -Fall risk precautions -TSH, HgbA1C and B12 ALL WNL -Orthostatic VS Q12H -Early ambulation with assist. #FEN No Fluids Monitor Electrolytes Regular Diet #DVT ppx: Lovenox 40 mg sq Daily #Dispo: Tele Visit type - Emergency Visit Emergency Visit: Yes ED Registration Date: 06/12/18 Care time: The patient presented to the Emergency Department on the above date and was hospitalized for further evaluation of their emergent condition. - New Patient This patient is new to me today: Yes Date on this admission: 06/13/18 - Critical Care Critical Care patient: No - Discharge Referral Referred to [facility] Med P.C.: No
[2018-06-13] MEDS: ATORVASTATIN CA 40 MG TABLET (FP) PO SCH (21:20)
--- NOTE | 2018-06-13 21:43 | HOSP ---
Subjective - Review of Symptoms Events since last encounter: score caller Radiology called for Brain MRI results per Dr. Duran. MRI shows: multifocal restricted diffusion, suggestive of left acute infarct at the Left MCA. Call out to Dr. Valenzuela, pending call back Physical Examination Vital Signs: Vital Signs Temperature 98.4 F 06/13/18 18:00 Pulse Rate 54 L 06/13/18 18:00 Respiratory Rate 18 06/13/18 18:00 Blood Pressure 143/60 06/13/18 18:00 O2 Sat by Pulse Oximetry (%) 94 L 06/13/18 20:16 Labs: CBC, BMP 06/13/18 05:30 06/13/18 05:30
[2018-06-14 06:53] LABS: ANION GAP 8 MMOL/L (8-16); BLOOD UREA NITROGEN 11 mg/dL (7-18); CALCIUM 8.5 mg/dL (8.5-10.1); CHLORIDE 106 mmol/L (98-107); CO2 26 mmol/L (21-32); CREATININE 0.8 mg/dL (0.55-1.3); GLUCOSE,RANDOM 89 mg/dL (74-106); MAGNESIUM 2.2 mg/dL (1.8-2.4); PHOSPHOROUS 4.4 mg/dL (2.5-4.9); POTASSIUM 4.6 mmol/L (3.5-5.1); SODIUM 140 mmol/L (136-145)
[2018-06-14] MEDS: ENOXAPARIN NA (PORCINE) 40 MG/0.4 ML DISP.SYRIN SQ SCH (09:34)
[2018-06-14] MEDS: ASPIRIN 81 MG CHEWABLE TABLETS PO SCH (09:35)
[2018-06-14] MEDS: NICOTINE 21 MG/24 HOURS TOPICAL PATCH TD SCH (09:35)
--- NOTE | 2018-06-14 10:37 | PN ---
Physical Exam: SUBJECTIVE: Patient seen and examined OBJECTIVE: Vital Signs Period Temp Pulse Resp BP Sys/Velasco Pulse Ox Last 24 Hr 97.9 F-98.4 F 54-59 18-20 100-143/50-82 94 GENERAL: The patient is awake, alert, and fully oriented, in no acute distress. HEAD: Normal with no signs of trauma. EYES: PERRL, extraocular movements intact, sclera anicteric, conjunctiva clear. No ptosis. ENT: Ears normal, nares patent, oropharynx clear without exudates, moist mucous membranes. NECK: Trachea midline, full range of motion, supple. LUNGS: Breath sounds equal, clear to auscultation bilaterally, no wheezes, no crackles, no accessory muscle use. HEART: Regular rate and rhythm, S1, S2 without murmur, rub or gallop. ABDOMEN: Soft, nontender, nondistended, normoactive bowel sounds, no guarding, no rebound, no hepatosplenomegaly, no masses. EXTREMITIES: 2+ pulses, warm, well-perfused, no edema. NEUROLOGICAL: Cranial nerves II through XII grossly intact. Normal speech, gait not observed. PSYCH: Normal mood, normal affect. SKIN: Warm, dry, normal turgor, no rashes or lesions noted Laboratory Results - last 24 hr 06/14/18 05:30 Sodium 140 Potassium 4.6 Chloride 106 Carbon Dioxide 26 Anion Gap 8 BUN 11 Creatinine 0.8 Creat Clearance w eGFR > 60 Random Glucose 89 Calcium 8.5 Phosphorus 4.4 Magnesium 2.2 Active Medications Generic Name Dose Route Start Last Admin Trade Name Freq PRN Reason Stop Dose Admin Aspirin 81 mg 06/13/18 10:00 06/14/18 09:35 Asa - PO 81 mg DAILY ARA Administration Atorvastatin Calcium 40 mg 06/12/18 22:00 06/13/18 21:20 Lipitor - PO 40 mg HS ARA Administration Enoxaparin Sodium 40 mg 06/13/18 10:00 06/14/18 09:34 Lovenox - SQ 40 mg DAILY ARA Administration Nicotine 21 mg 06/13/18 10:00 06/14/18 09:35 Nicoderm Patch - TD 21 mg DAILY ARA Administration ASSESSMENT/PLAN:
[2018-06-14 12:10] VITALS: BP 118/52; PULSE 58; TEMP 98.2
--- NOTE | 2018-06-14 12:39 | PN ---
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 Tolerating diet. Oriented. Functional communication improving. Producing some complete sentences. Still with anomia but wth improvement. Pt advised to continue speech tx privately if insurance covers, or as a out pt
--- NOTE | 2018-06-14 12:42 | PN ---
Teaching Attending Note Name of Resident: Paxton Ugalde ATTENDING PHYSICIAN STATEMENT I saw and evaluated the patient. I reviewed the resident's note and discussed the case with the resident. I agree with the resident's findings and plan as documented. SUBJECTIVE: OBJECTIVE: Vital Signs Period Temp Pulse Resp BP Sys/Velasco Pulse Ox Last 24 Hr 97.9 F-98.4 F 54-59 18-20 100-143/50-82 94-96 Laboratory Results - last 24 hr 06/14/18 05:30 Sodium 140 Potassium 4.6 Chloride 106 Carbon Dioxide 26 Anion Gap 8 BUN 11 Creatinine 0.8 Creat Clearance w eGFR > 60 Random Glucose 89 Calcium 8.5 Phosphorus 4.4 Magnesium 2.2 Current Medications Generic Name Dose Route Start Last Admin Trade Name Freq PRN Reason Stop Dose Admin Aspirin 81 mg 06/13/18 10:00 06/14/18 09:35 Asa - PO 81 mg DAILY ARA Administration Atorvastatin Calcium 40 mg 06/12/18 22:00 06/13/18 21:20 Lipitor - PO 40 mg HS ARA Administration Enoxaparin Sodium 40 mg 06/13/18 10:00 06/14/18 09:34 Lovenox - SQ 40 mg DAILY ARA Administration Nicotine 21 mg 06/13/18 10:00 06/14/18 09:35 Nicoderm Patch - TD 21 mg DAILY ARA Administration ASSESSMENT AND PLAN:
--- NOTE | 2018-06-14 13:54 | DS ---
Physical Exam: SUBJECTIVE: Patient seen and examined at bedside. Denies any complaints. Eater to return home. No acute events overnight. OBJECTIVE: Vital Signs Period Temp Pulse Resp BP Sys/Velasco Pulse Ox Last 24 Hr 97.9 F-98.4 F 54-59 18-20 100-143/50-82 94-96 PHYSICAL EXAM GENERAL: Aler Awake Orientedx3, Pleasant. HEAD: NC/AT EYES: PERRL, extraocular movements intact, sclera anicteric, conjunctiva clear. ENT: MMM NECK: Supple LUNGS: CTA BL, No wheezes, rales or rhonchi HEART: RRR no MRG S1S2 ABDOMEN: NDNT No HSM NEUROLOGICAL: CN 2-12 intact, speech coherent and logical, no facial droop no abnormal gait SKIN: No rashes or lesions appreciated LABS Laboratory Results - last 24 hr 06/14/18 05:30 Sodium 140 Potassium 4.6 Chloride 106 Carbon Dioxide 26 Anion Gap 8 BUN 11 Creatinine 0.8 Creat Clearance w eGFR > 60 Random Glucose 89 Calcium 8.5 Phosphorus 4.4 Magnesium 2.2 HOSPITAL COURSE: Date of Admission:06/12/18 Pt presented to [facility] on 06/12/2018 due to altered mental status and difficulty speaking. Underwent imaging with a CT scan of head which did not reveal any acute intracranial pathology. An MRI was subsequently ordered which revealed a stroke at the left middle cerebral artery in pt's brain. CTA Neck revealed 50% stenosis of left cervical internal carotid artery. Triglycerides were 306 , total cholesterol 262, and LDL 158. Pt seen by neurologist, Dr Valenzuela. Pt started on Atorvastatin, Aspirin, and nicotine patch for smoking cessation. Pt referred for speech therapy as outpatient. Medications: -Please take Aspirin 81mg once a day -Please take Atorvastatin (lipitor 40mg) once every evening Additional Recommendations: -Please have your cholesterol checked in 3 months Referrals: -Please make an appointment with Dr. Valenzuela, the neurologist within 1 week of discharge. -Please make an appointment with the [facility] (Dr. Strickland), the referral has been given to you in the discharge packet -Please make an appointment with Dr. Jonatan Hill (vascular surgeon) to evaluate the narrowing in your carotid arteries further within 1 month of discharge. -You will need followup speech therapy. We will send you a prescription. If you experience weakness, numbness or tingling, chest pain or shortness of breath, please return to the emergency room immediately Date of Discharge: 06/14/18 Minutes to complete discharge: 35 Discharge Summary Reason For Visit: ALTERED MENTAL STATUS Current Active Problems Altered mental status (Acute) Aphasia (Acute) TIA (transient ischemic attack) (Acute) Tobacco abuse (Acute) Tobacco abuse counseling (Acute) Condition: Improved - Instructions Diet, Activity, Other Instructions: You presented to [facility] on 06/12/2018 due to altered mental status and difficulty speaking. You underwent imaging with a CT scan of your head which was normal and did not reveal any acute intracranial pathology. Based on your symptoms at initially presentation, suspicion for stroke was high. An MRI was subsequently ordered which revealed a stroke at the left middle cerebral artery in your brain. Imaging of your left cervical internal carotid artery revealed 50 % stenosis (narrowing of the artery). Your triglycerides, total cholesterol, and LDL Cholesterol ("Bad Cholesterol"), were markedly elevated on admission. It is very important for you to adhere to a diet that is conducive to your health, including one low in fat and salt. While you were admitted to the hospital you were seen by a neurologist, Dr Valenzuela. It is imperative that you follow up with this this provider to optimize your recovery and to establish a plan forward from this point on. Please follow up with your primary care physician, a referral to our clinic has been sent to you. Please make an appointment within 1 week. Additionally, it is crucial that you refrain from smoking. Smoking is a known risk factor for stroke. Nicotine patches have been prescribed to you to aid in cutting down on cigarette smoking. You were placed on medications that are very important to reduce your reoccurrence of stroke including aspirin, and atorvastatin (lipitor). Please continue to take these medications as prescribed, prescriptions have been sent to your pharmacy. Medications: -Please take Aspirin 81mg once a day -Please take Atorvastatin (lipitor 40mg) once every evening Additional Recommendations: -Please have your cholesterol checked in 3 months Referrals: -Please make an appointment with Dr. Valenzuela, the neurologist within 1 week of discharge. -Please make an appointment with the [facility] (Dr. Strickland), the referral has been given to you in the discharge packet -Please make an appointment with Dr. Jonatan Hill (vascular surgeon) to evaluate the narrowing in your carotid arteries further within 1 month of discharge. -You will need followup speech therapy. We will send you a prescription. If you experience weakness, numbness or tingling, chest pain or shortness of breath, please return to the emergency room immediately. Referrals: Dewey Strickland MD [Staff Physician] - 1 Week Brian Valenzuela DO [Staff Physician] - 1 Week Jonatan Hill MD [Staff Physician] - 1 Month Disposition: HOME - Home Medications Comprehensive Discharge Medication List: Ambulatory Orders Aspirin [ASA -] 81 mg PO DAILY #30 tab.chew 06/14/18 Atorvastatin Ca [Lipitor] 40 mg PO HS #30 tablet 06/14/18 Miscellaneous Medical Supply [Outpatient Order] 1 each ASDIR #1 misc This patient is new to me today: No Emergency Visit: Yes ED Registration Date: 06/12/18 Care time: The patient presented to the Emergency Department on the above date and was hospitalized for further evaluation of their emergent condition. Critical Care patient: No - Discharge Referral Referred to [facility] Med [facility].C[facility] No
== END 2018-06-14 14:27 | disposition home or self-care (01) | DRG 66 ==
LOC: JER 07:33 → JERBED 08:56 → J4W 11:59
PROVIDERS: ADMIT Internal Medicine; ATTEND Internal Medicine
DX: I63.89 Other cerebral infarction (principal); I65.22 Occlusion and stenosis of left carotid artery; R47.01 Aphasia; E78.5 Hyperlipidemia, unspecified; F17.210 Nicotine dependence, cigarettes, uncomplicated; R29.706 NIHSS score 6; E75.5 Other lipid storage disorders
CPT/HCPCS: 36415; 70450-TC; 70496-TC; 70498-TC; 70551-TC; 71045-TC-FY; 80048; 80053; 80061; 81003; 81015; 82550; 82607; 83036; 83721; 83735; 84100; 84443; 84484; 85025; 85610; 86850; 86900; 86901; 90688; 93005; 93010; 93306-TC; 93880-TC; 97116-GP; 97161-GP; 99285-25; G0008

== ENCOUNTER 2023-06-01 10:16 | Emergency (ER) | payer OTHER ==
[2023-06-01] MEDS ORDERED: DIPHTH,PERTUSS(ACELL),TET 0.5 ML DISP.SYRIN IM ONE ×2 (10:32→11:00)
[2023-06-01 10:44] VITALS: BP 150/90; PULSE 64; RESP 18; TEMP 98.9; BMI 26.9
== END 2023-06-01 12:26 | disposition home or self-care (01) ==
LOC: FER 10:16
PROC: 3E0234Z Introduction of Serum, Toxoid and Vaccine into Muscle, Percutaneous Approach (ICD-10-PCS; principal; 2023-06-01)
DX: M25.562 Pain in left knee (principal); S82.025A Nondisplaced longitudinal fracture of left patella, initial encounter for closed fracture; R22.42 Localized swelling, mass and lump, left lower limb; W19.XXXA Unspecified fall, initial encounter
CPT/HCPCS: 73560-TC-LT-FY; 73562-TC-LT-FY; 73590-TC-LT-FY; 90715; 99283-25